=== PATIENT | male | born 1965 | race Caucasian/White ===

== ENCOUNTER 2016-12-21 10:49 | Emergency (ER) | payer OTHER ==
--- NOTE | ~2016-12-21 | CR93 ---
[facility] A Service of [facility] RADIOLOGY TEXT RESULTS PATIENT: USAMA LYONS LOCATION: [place] : [birth year] UNIT #: [id number] AGE: [address]: Jessica Otero SEX: M ORDER DR: [id number] [facility] [address] [place], [place] [address] [id number] MR#: [id number] Acc #: [id number] NAME: USAMA LYONS : 1965 SEX: M STUDY DATE/TIME: 12/21/2016 10:24 UNIT: [facility] ROOM: STUDY DESCRIPTION: CR Elbow Min 3 Views Lt Attending Physician: Jessica Otero Pa-C Referring Physician: Self Referral-Refer Use Only Ordering Physician: Ghazal Ogden A.P.R.N. Primary Care Physician: Primary Care Physician No MEDICAL IMAGING REPORT This report is preliminary unless electronic signature is present EXAM Left elbow 12/21/2016 INDICATIONS Fell yesterday, pain and swelling in the elbow ever since. TECHNIQUE Three views left elbow. No comparisons. FINDINGS There is an anterior joint effusion of posterior fat pad on the lateral view. There is a subtle lucency through the radial head most characteristic of a radial head fracture not significantly displaced. There is degenerative change of the left elbow and there is enthesopathic spurring of the olecranon. IMPRESSION Subtle linear fracture through the radial head. Secondary joint effusion. Degenerative changes as described. Dictated by... Mat Martin M.D. THIS IS AN ELECTRONICALLY VERIFIED REPORT Mat Martin M.D. at 12/21/2016 5:12 PM Alessandra TD: 12/21/2016 11:40 JOB #: [id number] MEDICAL IMAGING REPORT [facility] A Service [facility] RADIOLOGY TEXT RESULTS PATIENT: USAMA LYONS LOCATION: [facility] : [birth year] UNIT #: [id number] AGE: [address]: Jessica Otero SEX: M ORDER DR: Page 1 of 1 COPY
[~2016-12-21 10:49] MED LIST: ACETAMINOPHEN PO; FLEXERIL10 MG PO; IBUPROFEN800 MG PO; VICODIN 5/1 TAB 5/50 PO
== END 2016-12-21 11:20 | disposition home or self-care (01) ==
LOC: CFTX 10:49
DX: S52.122A Displaced fracture of head of left radius, initial encounter for closed fracture (principal); E11.9 Type 2 diabetes mellitus without complications; F17.200 Nicotine dependence, unspecified, uncomplicated; W01.0XXA Fall on same level from slipping, tripping and stumbling without subsequent striking against object, initial encounter; Y92.009 Unspecified place in unspecified non-institutional (private) residence as the place of occurrence of the external cause
CPT/HCPCS: 29105; 73080; 99283